=== PATIENT | female | born 1995 | race Asian ===

== ENCOUNTER 2019-03-12 20:33 | Emergency (ER) | payer OTHER ==
--- NOTE | 2019-03-12 23:24 | ED ---
Back Pain - HPI Summary HPI Summary: 23-year-old female presents with complaints of low back pain. States she has known herniated disc at L1-L2 and has chronic low back pain at baseline. States her pain became more severe tonight. Pain is sharp and radiates down her right leg to the level of her knee. Denies fever, chills, abdominal pain, nausea, vomiting, dysuria, frequency, urgency, numbness, tingling, or weakness of the lower extremities, or loss of bowel or bladder control. - History of Current Complaint Chief Complaint: EDBackInjuryPain Stated Complaint: BACK PAIN PER PT Time Seen by Provider: 03/12/19 22:47 Hx Obtained From: Patient Pain Intensity: 8 - Allergies/Home Medications Allergies/Adverse Reactions: Allergies Allergy/AdvReac Type Severity Reaction Status Date / Time No Known Allergies Allergy Verified 03/12/19 20:40 PMH/Surg Hx/FS Hx/Imm Hx Previously Healthy: Yes Musculoskeletal History: Reports: Other Musculoskeletal History - Herniated disc Infectious Disease History: No Infectious Disease History: Denies: Traveled Outside the [place] in Last 30 Days - [place] - Family History Known Family History: Positive: Non-Contributory - Social History Occupation: Student Lives: With Family Alcohol Use: Occasionally Substance Use Type: Reports: None Smoking Status (MU): Never Smoked Tobacco Review of Systems Negative: Fever, Chills Cardiovascular: Negative Respiratory: Negative Negative: Abdominal Pain, Vomiting, Diarrhea, Nausea Negative: dysuria, frequency, hematuria, urgency Musculoskeletal: Other - See HPI Skin: Negative Neurological: Negative All Other Systems Reviewed And Are Negative: Yes Physical Exam - Summary Physical Exam Summary: GENERAL APPEARANCE: Well developed, well nourished, alert and cooperative female who appears to be uncomfortable unable to get into a position of comfort. CARDIAC: Normal S1 and S2. No S3, S4 or murmurs. Rhythm is regular. There is no peripheral edema, cyanosis or pallor. Extremities are warm and well perfused. Capillary refill is less than 2 seconds. Peripheral pulses intact. LUNGS: Clear to auscultation without rales, rhonchi, wheezing or diminished breath sounds. ABDOMEN: Positive bowel sounds. Soft, nondistended, nontender. No guarding or rebound. No masses or hepatosplenomegally. MUSKULOSKELETAL: ROM intact to all extremities. No joint erythema or tenderness. Normal muscular development. BACK: Examination of the spine reveals posture, no spinal deformity, mild right paraspinous lumbar tenderness with spasm. NEUROLOGICAL: Strength and sensation symmetric and intact to lower extremities. SKIN: Skin normal color, texture and turgor with no lesions or eruptions. Triage Information Reviewed: Yes Vital Signs On Initial Exam: Initial Vitals Temp Pulse Resp BP Pulse Ox 97.6 F 80 20 150/119 99 03/12/19 20:39 03/12/19 20:39 03/12/19 20:39 03/12/19 20:39 03/12/19 20:39 Vital Signs Reviewed: Yes Diagnostics - Vital Signs Vital Signs Temp Pulse Resp BP Pulse Ox 03/12/19 20:39 97.6 F 80 20 150/119 99 - Laboratory Lab Statement: Any lab studies that have been ordered have been reviewed, and results considered in the medical decision making process. Re-Evaluation - Re-Evaluation First Eval Re-Evaluation Time: 01:03 Change: Unchanged Comment: Patient states that pain is unchanged. We discussed adding a narcotic pain medication to try to provide some relief in the pain but also discussed that this type of pain is often difficult to treat. She was offered IM or PO and she is electing for an IM injection. Will give her morphine 4 mg IM and reassess. Second Eval Re-Evaluation Time: 02:04 Change: Improved Comment: Patient reports some improvement in her lower back pain but pain radiating down her leg has only minimally improved. We discussed the challenges of treating this type of pain and that as long as she was not having any neuromuscular deficits we would try to manage her pain as best we could and have her follow up with neurosurgery outpatient. She was able to bear weight and ambulate in the hallway. Back Pain Course/Dx - Course Course Of Treatment: 23-year-old female presents with complaints of low back pain. States she has known herniated disc at L1-L2 and has chronic low back pain at baseline. States her pain became more severe tonight. Pain is sharp and radiates down her right leg to the level of her knee. Denies fever, chills , abdominal pain, nausea, vomiting, dysuria, frequency, urgency, numbness, tingling, or weakness of the lower extremities, or loss of bowel or bladder control. Patient was given ketorolac 30 mg IM, diazepam 5 mg PO, and had a lidocaine patch placed. Patient reported little relief in pain therefore was additionally given morphine 4 mg IM. Patient reported some relief in her lower back pain although only minimal relief in the pain radiating down her right leg. She was able to bear weight and walk in the hallway and showed no evidence of any neuromuscular deficit. She is to be discharged home with a prescription for naproxen 500 mg twice a day 5 days then twice a day as needed, hydrocodone- acetaminophen 5 mg/325 mg 1 tab every 8 hours as needed for severe pain, as well as cyclobenzaprine 10 mg every 8 hours as needed for muscle spasm. She states she is return home to [place] in a few days therefore she is to follow- up with her primary care provider or neurosurgery if symptoms are not improving. Anticipatory guidance and warning symptoms reviewed with the patient. Verbalizes understanding and agrees with plan of care. - Diagnoses Differential Diagnosis/HQI/PQRI: Positive: Herniated Disc, Renal Colic, Strain Provider Diagnoses: Low back pain Discharge - Sign-Out/Discharge Documenting (check all that apply): Patient Departure Patient Received Moderate/Deep Sedation with Procedure: No - Discharge Plan Condition: Stable Disposition: HOME Prescriptions: Cyclobenzaprine HCl 10 mg PO Q8HR PRN #21 tablet PRN Reason: Spasms - Back Naproxen [Naproxen 500 mg tab] 500 mg PO Q12HR #30 tablet Patient Education Materials: Acute Low Back Pain (ED) Referrals: No Primary Care Phys,NOPCP [Primary Care Provider] - Selvin Dennison MD [Medical Doctor] - 3 Days (Follow up in 3-5 days if no improvement in symptoms. Call for appointment.) Additional Instructions: You were given an injection of an anti-inflammatory pain medication called ketoralac (Toradol) in the emergency room for your pain. Do not take any other anti-inflammatory pain medications such as ibuprofen (Advil, Motrin), naproxen ( Aleve), or aspirin for at least 8 hours after receiving this injection. You were also given diazepam to help relax the muscles. This medication will cause drowsiness he should not drive after receiving. A lidocaine patch was applied in the emergency room. This should be removed after 12 hours. Take naproxen 500 mg twice a day with food for the next 5 days then may take twice a day as needed for pain. Take hydrocodone-acetaminophen 5 mg /325 mg 1 tablet every 8 hours as needed for severe pain. This medication will cause drowsiness and not take and drive or operate machinery. Take cyclobenzaprine 10 mg every 8 hours as needed for spasm. This medication will cause drowsiness and not take and drive or operate machinery. Try applying warm moist heat to her lower back for 15-20 minutes at least 4 times a day. Follow-up with your primary care provider or contact neurosurgery to schedule appointment appear symptoms are not improving. Return to the emergency room if you develop any fever, chills, severe abdominal pain, persistent or projectile vomiting, weakness, numbness, tingling in the leg , or loss of bowel or bladder control. - Billing Disposition and Condition Condition: STABLE Disposition: Home
[2019-03-12] MEDS ORDERED: Diazepam TAB(*) 5 MG PO ONE (23:39)
[2019-03-12] MEDS ORDERED: Ketorolac INJ* 30 MG/ML 1 ML VIAL IM ONE (23:39)
[2019-03-13] MEDS ORDERED: Morphine 4 MG/ML VIAL (1 ml) 4 MG/ML VIAL IM ONE (01:05)
[2019-03-13 02:39] VITALS: BP 143/82
[2019-03-13] MEDS ORDERED: Lidocaine PATCH 5%* 1 PATCH TRANSDERM ONE (23:10)
== END 2019-03-13 02:38 | disposition home or self-care (01) ==
LOC: ED 20:33
DX: M54.5 Low back pain (principal)
CPT/HCPCS: 96372; 99282; A9270-GY; J1885; J2270